=== PATIENT | female | born 1960 | race Caucasian/White ===

== ENCOUNTER 2023-12-15 21:08 | Observation (INO) ==
[2023-12-15] MEDS ORDERED: fentaNYL 100 mcg/2 ml 50 MCG/ML VIAL ONE (22:17)
[2023-12-15] MEDS ORDERED: Midazolam 5 mg/5 ml VIAL 1 mg/ml 5 ml VIAL (5 mg) ONE (22:17)
[2023-12-15] MEDS ORDERED: Lidocaine 2% PF 5 ML VIAL ONE (22:17)
[2023-12-15] MEDS ORDERED: Propofol 10 MG/ML 20 ML BTL ONE (22:17)
[2023-12-15] MEDS ORDERED: Rocuronium 50 mg VIAL 10 mg/ml 5 ml VIAL (50 mg) ONE (22:27)
[2023-12-15] MEDS ORDERED: Bupivacaine 0.5% SDV PF 30ML VIAL ONE (23:26)
[2023-12-15] MEDS ORDERED: Lidocaine 1% w EPI 1:200,000 SDV 30 ML VIAL ONE (23:27)
[2023-12-15] MEDS ORDERED: HYDROmorphone 1 MG/1 ML SYRINGE IV PRN (23:33)
[2023-12-15] MEDS ORDERED: Naloxone 0.4 mg VIAL 0.4 mg/ml 1 ml VIAL IV PRN (23:33)
[2023-12-15] MEDS ORDERED: Scopolamine 1 mg/72hr PATCH ONE (23:42)
[2023-12-16] MEDS ORDERED: ceFOXitin 2 GM IVPREMIX 2 GM/50 ML BAG ONE (00:06)
[2023-12-16] MEDS ORDERED: Acetaminophen IV 1 GM/100ML 1,000 MG/100 ML BAG IV ONE (00:14)
[2023-12-16] MEDS ORDERED: Ondansetron 4 mg VIAL 2 MG/ML 2 ml VIAL ONE (00:15)
[2023-12-16] MEDS ORDERED: Dexamethasone IV 4 MG/ML VIAL 1 ml VIAL ONE (00:15)
[2023-12-16] MEDS ORDERED: fentaNYL 100 mcg/2 ml 50 MCG/ML VIAL ONE (00:18)
[2023-12-16] MEDS ORDERED: oxyCODONE/Acetamin 5/325 mg TAB PO PRN (00:45)
[2023-12-16] MEDS: Scopolamine 1 mg/72hr PATCH TRANSDERM SCH (01:30)
[2023-12-16] MEDS: NS 0.9% 1000 ml BAG 1,000 ML IV SCH (02:02)
[2023-12-16] MEDS: Piperacillin/Tazobac 3.375 BAG 3.375 GM/100 ML BAG IV SCH (04:28)
[2023-12-16] MEDS: Heparin 5000 UNITS/ML 1 mL VIAL SUBCUT SCH (06:10)
[2023-12-16 10:04] VITALS: BP 99/58
== END 2023-12-16 10:55 | disposition home or self-care (01) ==
LOC: ED 21:08 → EDHOLD 23:12 → SDS 23:12 → SSU 23:13
PROVIDERS: ADMIT Surgery; ATTEND Surgery